=== PATIENT | male | born 1980 | race Caucasian/White ===

== ENCOUNTER → 2019-07-10 | Outpatient (CLI) | payer OTHER ==
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
== END ==
LOC: RAD FS 08:58
PROVIDERS: ATTEND Nurse Practitioner Family
DX: S09.93XA Unspecified injury of face, initial encounter (principal); V89.2XXA Person injured in unspecified motor-vehicle accident, traffic, initial encounter; W22.10XA Striking against or struck by unspecified automobile airbag, initial encounter
CPT/HCPCS: 70140